=== PATIENT | female | born 1975 ===

== ENCOUNTER → 2025-08-29 15:07 | Outpatient (CLI) | payer OTHER, SELFPAY ==
--- NOTE | 2025-08-29 15:12 | DI.MRI.S_ITS ---
PROCEDURE: MR KNEE RT WO CON INDICATIONS: Internal derangement of right knee TECHNIQUE: Noncontrast sagittal PD fast spin echo and T2 fast spin echo with fat saturation, sagittal 3-D FLASH with fat saturation; coronal T1 spin echo and PD fast spin echo with fat saturation, and axial PD fast spin echo with fat saturation through the knee. COMPARISON: None. FINDINGS: Image quality: Excellent. Menisci: The medial and lateral menisci demonstrate normal morphology and internal signal. The meniscal root ligaments appear intact. Cruciate ligaments: The anterior and posterior cruciate ligaments appear intact. Medial structures: Heterogeneous cystic changes in the soft tissues within and adjacent to the proximal attachment of the medial head of the gastrocnemius some of which related to partial tear, injury/strain and or ganglion cysts. Small popliteal cyst likely partially ruptured into the adjacent soft tissues superiorly and medial to the semimembranosus tendon in total measures up to approximately 2.5 cm cc by 2 cm AP x 1 cm transverse. Mild soft tissue edema surrounding the distal pes anserinus tendons without tear or retraction. The medial collateral ligament appears intact. Lateral structures: Mild increased lateral bursal fluid adjacent to the lateral collateral ligament and popliteus tendon. The lateral collateral ligament, long and short heads of the biceps femoris tendon appear intact. The popliteus tendon appears normal. Iliotibial band appears normal. Anterior structures: Flattening of the femoral trochlea and of the patellar facets may predispose to patellar tracking instability. Moderate lateral subluxation of the patella up to 9 mm. The quadriceps and patellar tendons appear intact. No edema in the infrapatellar fat pad. Bones and cartilage: Mild heterogeneous signal and some irregularity in the lateral patellar facet. Mild diffuse cartilage thinning with some irregularity in the medial greater than lateral compartments without distinct focal cartilage defect. Joint space: Mild knee joint effusion. IMPRESSION: Proximal to aspirin medial head gastrocnemius partial tear and or adjacent ganglion cyst. Small popliteal cyst likely partially ruptured. Mild lateral bursal fluid. Suspected patellar tracking instability as discussed above with moderate lateral subluxation of the patella. Mild knee joint effusion. Mild degenerative changes with cartilage thinning and irregularity as discussed above. No MR evidence of fracture Dictated by: Ovidio Lopez M.D. on 08/29/2025 at 16:27 Approved by: Ovidio Lopez M.D. on 08/29/2025 at 16:57
== END ==
LOC: MRI 15:11
PROVIDERS: PCP Naturopath; Referring Provider Orthopaedic Surgery Foot and Ankle Surgery; Visit Provider Orthopaedic Surgery Foot and Ankle Surgery
DX: S83.8X1A Sprain of other specified parts of right knee, initial encounter (principal); S83.011A Lateral subluxation of right patella, initial encounter; M71.21 Synovial cyst of popliteal space [Baker], right knee; M25.461 Effusion, right knee; M23.91 Unspecified internal derangement of right knee
CPT/HCPCS: 73721

== ENCOUNTER → 2025-10-20 10:46 | Outpatient (CLI) | payer OTHER, SELFPAY ==
--- NOTE | 2025-10-20 10:47 | DI.MRI.S_ITS ---
PROCEDURE: MR KNEE LT WO CON INDICATIONS: Chondromalcaia of patellofemoral joint TECHNIQUE: Noncontrast sagittal PD fast spin echo and T2 fast spin echo with fat saturation, sagittal 3-D FLASH with fat saturation; coronal T1 spin echo and PD fast spin echo with fat saturation, and axial PD fast spin echo with fat saturation through the knee. COMPARISON: [facility], MR, MR KNEE RT WO CON, 08/29/2025, 15:18. FINDINGS: Image quality: Excellent. Some images are limited by patient motion, pulsation or other artifacts. Menisci: The medial and lateral menisci demonstrate normal morphology and internal signal. The meniscal root ligaments appear intact. Mild posterior meniscocapsular separation medial greater than lateral. Cruciate ligaments: The anterior and posterior cruciate ligaments appear intact. Medial structures: Mild heterogeneous increased T2 weighted signal at the proximal attachment of the medial head of the gastrocnemius, and at the distal insertion of the semimembranosus tendon, tendinopathy versus partial tear. Visualized portions of the pes anserinus tendons appear normal. No abnormal bursal fluid. Lateral structures: The lateral collateral ligament, long and short heads of the biceps femoris tendon appear intact. The popliteus tendon appears normal. Iliotibial band appears normal. Anterior structures: Mild flattening of the femoral trochlea may be predispose to patellar tracking instability. No gross patellar subluxation. The quadriceps tendon and patellar ligament appear intact. No abnormal edema in the infrapatellar fat pad. Bones and cartilage: Mild heterogeneous signal in the central patellar ridge and medial patellar facet without focal cartilage defect. No bone marrow contusions or fractures. The cartilage of the medial and lateral femorotibial compartments, appears normal in thickness for patient's age. Joint space: Trace knee joint effusion. No significant popliteal cyst. IMPRESSION: Mild tendinopathy proximal gastrocnemius and distal semimembranosus. Mild meniscocapsular separation posteriorly. Trace knee joint effusion. Nonspecific flattening of the femoral trochlea may predispose to patellar tracking instability. Mild signal changes in the patellar cartilage. Dictated by: Ovidio Lopez M.D. on 10/22/2025 at 10:33 Approved by: Ovidio Lopez M.D. on 10/22/2025 at 10:49
== END ==
LOC: MRI 10:46
PROVIDERS: PCP Naturopath; Referring Provider Orthopaedic Surgery Foot and Ankle Surgery; Visit Provider Orthopaedic Surgery Foot and Ankle Surgery
DX: S83.282A Other tear of lateral meniscus, current injury, left knee, initial encounter (principal); S83.242A Other tear of medial meniscus, current injury, left knee, initial encounter; M22.42 Chondromalacia patellae, left knee; M23.612 Other spontaneous disruption of anterior cruciate ligament of left knee; X58.XXXA Exposure to other specified factors, initial encounter
CPT/HCPCS: 73721